=== PATIENT | female | born 1985 | race Caucasian/White ===

== ENCOUNTER 2018-07-20 15:32 | Emergency (ER) | payer MEDICAID ==
[~2018-07-20] VITALS: Ht 162.6 cm; Wt 72.1 kg
[2018-07-20 15:44] VITALS: Ht 162.6 cm; Wt 72.1 kg
[2018-07-20 16:27] VITALS: BP 113/69
== END 2018-07-20 16:27 | disposition home or self-care (01) ==
LOC: ED 15:32
DX: R10.30 Lower abdominal pain, unspecified (principal); N80.9 Endometriosis, unspecified